=== PATIENT | male | born 1985 | race African-American/Black ===

== ENCOUNTER 2017-03-21 18:25 | Emergency (ER) | payer SELFPAY ==
--- NOTE | ~2017-03-21 | CR63 ---
[facility]. [facility] A Service of [facility] & [facility] RADIOLOGY TEXT RESULTS PATIENT: VICKIE MIRAMONTES LOCATION: SED : [birth year] UNIT #: [id number] AGE: [address]: Alejandro Curtis MD SEX: M ORDER DR: [id number] [place] [id number] E MR#: [id number] Acc #: [id number] NAME: VICKIE MIRAMONTES : 1985 SEX: M STUDY DATE/TIME: 03/21/2017 18:12 UNIT: SED ROOM: STUDY DESCRIPTION: CR Chest 2 View Attending Physician: Alejandro Curtis M.D. Ordering Physician: Alejandro Curtis M.D. Primary Care Physician: No Primary Care Physician MEDICAL IMAGING REPORT This report is preliminary unless electronic signature is present. EXAM Two view chest, 03/21/17 INDICATION Left side rib pain with fever and shortness of air for 2 days. No trauma. TECHNIQUE Two views of the chest were obtained. No comparison. FINDINGS Cardiac and mediastinal contours are normal. The right lung is clear. There is a left upper lobe pneumonia. Radiographic followup until clear recommended. No pneumothorax. IMPRESSION Left upper lobe pneumonia. Radiographic followup until clear is suggested. Dictated by... Leon Singer Jr., M.D. THIS IS AN ELECTRONICALLY VERIFIED REPORT Leon Singer Jr., M.D. at 03/21/2017 10:27 PM JOSELIN/thuy TD: 03/21/2017 21:11 JOB #: [id number] MEDICAL IMAGING REPORT Page 1 of 1
[2017-03-21 18:23] LABS: URINE SOURCE CLEAN CATCH
[~2017-03-21 18:25] MED LIST: POLYTRIM O10 ML OPTH OD; ZOVIRAX200 MG PO
[2017-03-21 18:26] LABS: URINE APPEARANCE SL CLOUDY; URINE BLOOD TRACE-INTACT (NEG); URINE COLOR YELLOW; URINE GLUCOSE NEG (NORM); URINE KETONE TRACE (NEG); URINE LEUKOCYTE ESTERASE 2+ (NEG); URINE NITRATE NEG (NEG); URINE PROTEIN 1+ (NEG); URINE UROBILINOGEN >=8.0 MG/DL (NORM)
[2017-03-21 18:30] LABS: MICRO INDICATED? YES
[2017-03-21 18:33] LABS: URINE BILIRUBIN NEG (NEG)
[2017-03-21 18:34] LABS: CULTURE INDICATED? YES; URINE BACTERIA 1+ (NEG); URINE WBC 50-100 /[HPF] (0-5)
[2017-03-24 02:33] LABS: CHLAMYDIA TRACH Not Detected (Not Detected); N GONOR Not Detected (Not Detected)
== END 2017-03-21 19:26 | disposition home or self-care (01) ==
LOC: SED 18:25
PROVIDERS: Emergency Medicine
DX: J18.9 Pneumonia, unspecified organism (principal); N39.0 Urinary tract infection, site not specified; F17.200 Nicotine dependence, unspecified, uncomplicated
CPT/HCPCS: 71020; 81003; 87086; 87491; 87591; 96372; 99283; 99284; J0696